=== PATIENT | female | born 1960 | race African-American/Black ===

== ENCOUNTER 2017-06-02 16:03 | Inpatient (IN) | payer MEDICAID, OTHER ==
[2017-06-02] MEDS ORDERED: ACETAMINOPHEN TAB 325 MG TAB PO STA (17:28)
[2017-06-02] MEDS ORDERED: SODIUM CHLORIDE 0.9% 1,000 ML IV ONE (17:28)
--- NOTE | 2017-06-02 17:32 | ED ---
Skin/Abscess/FB HPI <Gael King - Last Filed: 06/02/17 18:50> - General Source: patient, RN notes reviewed Mode of arrival: ambulatory Limitations: no limitations <Nicolle Gallo - Last Filed: 06/02/17 19:32> - General Chief complaint: Skin/Abscess/Foreign Body Stated complaint: Rash Time Seen by Provider: 06/02/17 16:42 - History of Present Illness Initial comments: Patient is a 57-year-old female presents to the emergency room for evaluation of abdominal wall abscess. Patient states that she noticed a small lump consistent with either spider bite or mosquito bite on her abdomen on May 25. Patient states on and Sunday she noticed that the area began to get larger and draining yellow fluid. Patient states while at work today the area was very irritating with her shirt rubbing against it and bending over. Patient states that she has not been feeling well and has been having low-grade fevers. Patient denies history of abscesses. Patient denies history of MRSA or any type of staph infections. Patient denies nausea or vomiting. Patient denies chest pain or shortness of breath. Patient does states she works in a [employer]. Patient denies history of diabetes. (Nicolle Gallo) - Related Data Home Medications Medication Instructions Recorded Confirmed Ibuprofen [Motrin] 200 mg PO Q6HR PRN 06/02/17 06/02/17 Allergies Allergy/AdvReac Type Severity Reaction Status Date / Time Penicillins Allergy Unknown Verified 06/02/17 16:34 Review of Systems ROS Other: All systems not noted in ROS Statement are negative. <Gael King - Last Filed: 06/02/17 18:50> ROS Other: All systems not noted in ROS Statement are negative. <Nicolle aGllo - Last Filed: 06/02/17 19:32> ROS Statement: Those systems with pertinent positive or pertinent negative responses have been documented in the HPI. Past Medical History Past Medical History: Asthma, Thyroid Disorder History of Any Multi-Drug Resistant Organisms: None Reported Past Surgical History: No Surgical Hx Reported Past Psychological History: No Psychological Hx Reported Smoking Status: Never smoker Past Alcohol Use History: None Reported Past Drug Use History: None Reported <Nicolle Gallo - Last Filed: 06/02/17 19:32> General Exam <Gael King - Last Filed: 06/02/17 18:50> Limitations: no limitations General appearance: alert, in no apparent distress Head exam: Present: atraumatic, normocephalic, normal inspection Eye exam: Present: normal appearance ENT exam: Present: normal exam Neck exam: Present: normal inspection Respiratory exam: Present: normal lung sounds bilaterally. Absent: respiratory distress Cardiovascular Exam: Present: regular rate, normal rhythm, normal heart sounds GI/Abdominal exam: Present: soft, normal bowel sounds, other (2 inch x 1 inch abscess/induration with surrounding erythema over the superior portion of the abdomen. No drainage noted. Warm to touch.). Absent: distended, tenderness, guarding, rebound, rigid Extremities exam: Present: normal inspection Back exam: Present: normal inspection Neurological exam: Present: alert, oriented X3, CN II-XII intact, normal gait Psychiatric exam: Present: normal affect, normal mood Skin exam: Present: warm, dry. Absent: rash <Nicolle Gallo - Last Filed: 06/02/17 19:32> - General Exam Comments Initial Comments: Laying in exam room, no acute distress. (Nicolle Gallo) Procedures - Incision & Drainage Consent Obtained: verbal consent Site: abdomen Size (cm): 4 I&D Cleaning Method: Betadine Sterile Field Used?: No Scalpel Used: #11 I&D Drainage Obtained: Pus, Blood Culture Obtained?: Yes Patient Tolerated Procedure: well <Nicolle Gallo - Last Filed: 06/02/17 19:32> Medical Decision Making - Lab Data Result diagrams: 06/02/17 17:00 06/02/17 17:00 <Gael King - Last Filed: 06/02/17 18:50> - Lab Data Result diagrams: 06/02/17 17:00 06/02/17 17:00 <Nicolle Gallo - Last Filed: 06/02/17 19:32> - Medical Decision Making Patient presents with a an abscess on the anterior abdominal wall. . Patient states she thought was a spider bite. Appears to be MRSA. She does work in a [employer]. She denies ever having had a MRSA infection the past, patient does not have diabetes. She has an ALLERGY to penicillin. The patient will have an incision and drainage done to obtain a sample and will be started on vancomycin and admitted the hospital. Dr. King (Gael King) - Lab Data Lab Results 06/02/17 06/02/17 06/02/17 Range/Units 17:00 17:00 17:00 WBC 8.8 (3.8-10.6) k/uL RBC 3.78 L (3.80-5.40) m/uL Hgb 11.7 (11.4-16.0) gm/dL Hct 35.6 (34.0-46.0) % MCV 94.2 (80.0-100.0) fL MCH 31.1 (25.0-35.0) pg MCHC 33.0 (31.0-37.0) g/dL RDW 13.1 (11.5-15.5) % Plt Count 285 (150-450) k/uL Neutrophils % 68 % Lymphocytes % 18 % Monocytes % 6 % Eosinophils % 7 % Basophils % 0 % Neutrophils # 5.9 (1.3-7.7) k/uL Lymphocytes # 1.6 (1.0-4.8) k/uL Monocytes # 0.5 (0-1.0) k/uL Eosinophils # 0.6 (0-0.7) k/uL Basophils # 0.0 (0-0.2) k/uL Sodium 141 (137-145) mmol/L Potassium 4.0 (3.5-5.1) mmol/L Chloride 105 (98-107) mmol/L Carbon Dioxide 24 (22-30) mmol/L Anion Gap 12 mmol/L BUN 13 (7-17) mg/dL Creatinine 0.76 (0.52-1.04) mg/dL Est GFR (MDRD) Af Amer >60 (>60 ml/min/1.73 sqM) Est GFR (MDRD) Non-Af >60 (>60 ml/min/1.73 sqM) Glucose 85 (74-99) mg/dL Plasma Lactic Acid Cal 1.2 (0.7-2.0) mmol/L Calcium 9.4 (8.4-10.2) mg/dL Total Bilirubin 0.7 (0.2-1.3) mg/dL AST 23 (14-36) U/L ALT 28 (9-52) U/L Alkaline Phosphatase 95 (38-126) U/L Total Protein 7.7 (6.3-8.2) g/dL Albumin 4.5 (3.5-5.0) g/dL Urine Color Urine Appearance (Clear) Urine pH (5.0-8.0) Ur Specific Corona (1.001-1.035) Urine Protein (Negative) Urine Glucose (UA) (Negative) Urine Ketones (Negative) Urine Blood (Negative) Urine Nitrite (Negative) Urine Bilirubin (Negative) Urine Urobilinogen (<2.0) mg/dL Ur Leukocyte Esterase (Negative) 06/02/17 Range/Units 17:00 WBC (3.8-10.6) k/uL RBC (3.80-5.40) m/uL Hgb (11.4-16.0) gm/dL Hct (34.0-46.0) % MCV (80.0-100.0) fL MCH (25.0-35.0) pg MCHC (31.0-37.0) g/dL RDW (11.5-15.5) % Plt Count (150-450) k/uL Neutrophils % % Lymphocytes % % Monocytes % % Eosinophils % % Basophils % % Neutrophils # (1.3-7.7) k/uL Lymphocytes # (1.0-4.8) k/uL Monocytes # (0-1.0) k/uL Eosinophils # (0-0.7) k/uL Basophils # (0-0.2) k/uL Sodium (137-145) mmol/L Potassium (3.5-5.1) mmol/L Chloride (98-107) mmol/L Carbon Dioxide (22-30) mmol/L Anion Gap mmol/L BUN (7-17) mg/dL Creatinine (0.52-1.04) mg/dL Est GFR (MDRD) Af Amer (>60 ml/min/1.73 sqM) Est GFR (MDRD) Non-Af (>60 ml/min/1.73 sqM) Glucose (74-99) mg/dL Plasma Lactic Acid Cal (0.7-2.0) mmol/L Calcium (8.4-10.2) mg/dL Total Bilirubin (0.2-1.3) mg/dL AST (14-36) U/L ALT (9-52) U/L Alkaline Phosphatase (38-126) U/L Total Protein (6.3-8.2) g/dL Albumin (3.5-5.0) g/dL Urine Color Yellow Urine Appearance Clear (Clear) Urine pH 5.5 (5.0-8.0) Ur Specific [place] 1.022 (1.001-1.035) Urine Protein Trace H (Negative) Urine Glucose (UA) Negative (Negative) Urine Ketones Negative (Negative) Urine Blood Negative (Negative) Urine Nitrite Negative (Negative) Urine Bilirubin Negative (Negative) Urine Urobilinogen <2.0 (<2.0) mg/dL Ur Leukocyte Esterase Negative (Negative) Disposition <Gael King - Last Filed: 06/02/17 18:50> Decision Date: 06/02/17 <Nicolle Gallo - Last Filed: 06/02/17 19:32> Clinical Impression: Abdominal wall abscess Disposition: ADMITTED IP TO THIS [facility] Condition: Stable Referrals: None,Stated [Primary Care Provider] - 1-2 days
[2017-06-02 17:52] LABS: Appearance,Urine Clear (Clear); Basophils % (A) 0 %; Bilirubin,Urine Negative (Negative); Eosinophils # (A) 0.6 k/uL (0-0.7); Eosinophils % (A) 7 %; Glucose,Urine (UA) Negative (Negative); HCT 35.6 % (34.0-46.0); HDW 2.26; HGB 11.7 gm/dL (11.4-16.0); Ketones,Urine Negative (Negative); Leukocyte Esterase,Urine Negative (Negative); Luc # (Auto) 0.12; Luc % (Auto) 1; Lymphocytes # (A) 1.6 k/uL (1.0-4.8); Lymphocytes % (A) 18 %; MCH 31.1 pg (25.0-35.0); MCV 94.2 fL (80.0-100.0); Mean Platelet Volume 8.6; Monocytes # (A) 0.5 k/uL (0-1.0); Monocytes % (A) 6 %; Neutrophils # (A) 5.9 k/uL (1.3-7.7); Neutrophils % (A) 68 %; Nitrite,Urine Negative (Negative); PH, Urine 5.5 (5.0-8.0); Protein,Urine Trace (Negative); RBC 3.78 m/uL (3.80-5.40); RDW 13.1 % (11.5-15.5); Specific Gravity,Urine 1.022 (1.001-1.035); UA Billing (MACRO vs. MICRO) CHEM; Urobilinogen,Urine <2.0 mg/dL (<2.0); WBC 8.8 k/uL (3.8-10.6); WBC (Perox) 9.48
[2017-06-02 18:01] LABS: ALT 28 U/L (9-52); AST 23 U/L (14-36); Alkaline Phosphatase 95 U/L (38-126); Anion Gap 12 mmol/L; Blood Urea Nitrogen 13 mg/dL (7-17); Calcium 9.4 mg/dL (8.4-10.2); Carbon Dioxide 24 mmol/L (22-30); Chloride 105 mmol/L (98-107); Glucose 85 mg/dL (74-99); Non-African American GFR(MDRD) >60 (>60 ml/min/1.73 sqM); Sodium 141 mmol/L (137-145); Total Bilirubin 0.7 mg/dL (0.2-1.3); Total Protein 7.7 g/dL (6.3-8.2)
[2017-06-02] MEDS ORDERED: IV VANCOMYCIN PER PHARMACY 1 EACH MISC MISCELLANE PRN (18:49)
[2017-06-02] MEDS ORDERED: ONDANSETRON 4 MG/2 ML VIAL IVP PRN (19:01)
[2017-06-02] MEDS ORDERED: NALOXONE 0.4 MG/ML 1 ML VIAL IV PRN (19:01)
[2017-06-02] MEDS ORDERED: ACETAMINOPHEN TAB 325 MG TAB PO PRN (19:01)
[2017-06-02] MEDS ORDERED: KETOROLAC 30 MG/ML 1 ML VIAL IVP STA (19:14)
[2017-06-02] MEDS ORDERED: VANCOMYCIN 1,750 MG in SODIUM CHLORIDE 0.9% 250 ML IVPB ONE (19:30)
[2017-06-02] MEDS: SODIUM CHLORIDE 0.9% 1,000 ML IV SCH (19:43)
[2017-06-03 06:53] LABS: Basophils % (A) 1 %; CH 30.7; CHCM 32.3; Eosinophils # (A) 0.5 k/uL (0-0.7); Eosinophils % (A) 8 %; HDW 2.27; HGB 10.6 gm/dL (11.4-16.0); Luc # (Auto) 0.15; Luc % (Auto) 2; Lymphocytes # (A) 1.4 k/uL (1.0-4.8); Lymphocytes % (A) 23 %; MCH 30.7 pg (25.0-35.0); MCHC 32.2 g/dL (31.0-37.0); MCV 95.5 fL (80.0-100.0); Mean Platelet Volume 8.3; Monocytes # (A) 0.5 k/uL (0-1.0); Monocytes % (A) 8 %; Neutrophils # (A) 3.6 k/uL (1.3-7.7); Neutrophils % (A) 59 %; RBC 3.46 m/uL (3.80-5.40); RDW 13.2 % (11.5-15.5); WBC 6.1 k/uL (3.8-10.6); WBC (Perox) 6.65
[2017-06-03] MEDS: SODIUM CHLORIDE 0.9% 1,000 ML IV SCH ×2 (06:55→14:52)
[2017-06-03] MEDS: KETOROLAC 30 MG/ML 1 ML VIAL IVP PRN ×2 (07:01→18:52)
[2017-06-03] MEDS: VANCOMYCIN 1,500 MG in SODIUM CHLORIDE 0.9% 250 ML IVPB SCH (11:29)
--- NOTE | 2017-06-03 18:07 | HP ---
HISTORY AND PHYSICAL CHIEF COMPLAINT: Pain and swelling of the abdominal wall. HISTORY OF PRESENT ILLNESS: This 57-year-old woman with a past history of asthma, hypothyroidism, history of Caesarean section, not being followed by any primary care physician in the outpatient setting, is working in the housekeeping department in [employer]. The patient noted to have pain and swelling and some swelling of the abdominal wall, which has increased in intensity. Patient also has right shoulder lesion also. Because of increasing difficulty, patient came to [facility] and admitted for evaluation and treatment. Patient also complains of mild fever, some abdominal swelling and draining of fluid as well. There is no history of fever, rigors. No history of headache, loss of consciousness or seizures at this time. There is no history of MRSA infection previously. PAST MEDICAL HISTORY: Asthma, hypothyroidism, history of Caesarean section. MEDICATIONS PRIOR TO ADMISSION: Include Motrin 200 mg q.6h p.r.n. ALLERGIES: PENICILLIN. FAMILY HISTORY: History of intestinal cancer in the family. SOCIAL HISTORY: No history of smoking. No history of alcohol intake. REVIEW OF SYSTEMS: Otherwise mentioned earlier. Review of systems: ENT: No diminished vision. No diminished hearing. Cardiovascular: No angina or palpitations. Respiratory: No cough. No hemoptysis. GI: No nausea or vomiting. : No dysuria. Nervous system: No numbness, weakness. ALLERGY/IMMUNOLOGY: No asthma or hayfever. Musculoskeletal: As mentioned earlier. Hematology/Oncology: No history of anemia. Endocrine: No history of diabetes or hypothyroidism. CONSTITUTIONAL: As mentioned earlier. Dermatology: Negative. Rheumatology: Negative. Psychiatric: As mentioned earlier. EXAMINATION: Alert and oriented times three. The pulse is 77, blood pressure 161/85, respiration 18, temperature 98.8, pulse ox 100% on 2 L. HEENT: Conjunctivae normal. Neck: No jugular venous distention. Cardiovascular: S1, S2 muffled. Respiratory: Breath sounds diminished at the bases. No rhonchi. No crackles. ABDOMEN: Soft. Abdominal wall swelling and pain and tenderness. Some erythema also present. Evidence of cellulitis and abscess needs to be ruled out. Otherwise, ABDOMEN: Soft. No guarding, no rigidity. No mass palpable. Legs no edema. No swelling. NERVOUS SYSTEM: Higher functions as mentioned earlier. Moves all four limbs. No focal deficits. Lymphatics: No lymph nodes palpable in the neck, axillae or groin. Skin: Examination of the abdominal wall skin as mentioned earlier. Otherwise minimal abscess and purulent lesion in the right shoulder area present. Joints no active deforming arthropathy. LAB STUDIES: WBC 6.1, hemoglobin 14.2. ASSESSMENT: 1. Acute abscess cellulitis of the abdominal wall rule out Methicillin-resistant Staphylococcus aureus. 2. Right shoulder cellulitis. 3. History of abscess. 4. Hypothyroidism. 5. . RECOMMENDATIONS AND DISCUSSION: This 57-year-old woman who presented with multiple complex medical issues, we will monitor the patient closely. Continue the current management and symptomatic treatment. Otherwise the patient is started on vancomycin. We will continue to monitor. Obtain cultures. DVT prophylaxis. Symptomatic treatment. Guarded prognosis. Further recommendations to follow. Also recommend the patient follow up with primary care physician closely in the outpatient setting. BETZAIDA / BANDAR: [id number] /
[2017-06-04] MEDS: KETOROLAC 30 MG/ML 1 ML VIAL IVP PRN ×3 (01:08→16:58)
[2017-06-04] MEDS: SODIUM CHLORIDE 0.9% 1,000 ML IV SCH ×3 (03:19→16:57)
[2017-06-04] MEDS: VANCOMYCIN 1,500 MG in SODIUM CHLORIDE 0.9% 250 ML IVPB SCH ×2 (03:32→19:16)
[2017-06-04 07:06] LABS: Basophils % (A) 0 %; CH 30.7; CHCM 32.6; Eosinophils # (A) 0.5 k/uL (0-0.7); Eosinophils % (A) 7 %; HCT 32.9 % (34.0-46.0); HDW 2.33; HGB 10.7 gm/dL (11.4-16.0); Luc # (Auto) 0.12; Luc % (Auto) 2; Lymphocytes # (A) 1.2 k/uL (1.0-4.8); Lymphocytes % (A) 18 %; MCH 30.7 pg (25.0-35.0); MCHC 32.4 g/dL (31.0-37.0); MCV 94.6 fL (80.0-100.0); Mean Platelet Volume 8.5; Monocytes # (A) 0.5 k/uL (0-1.0); Monocytes % (A) 8 %; Neutrophils # (A) 4.4 k/uL (1.3-7.7); Neutrophils % (A) 65 %; RBC 3.48 m/uL (3.80-5.40); RDW 13.1 % (11.5-15.5); WBC 6.7 k/uL (3.8-10.6); WBC (Perox) 6.88
[2017-06-04 07:28] LABS: Anion Gap 7 mmol/L; Blood Urea Nitrogen 10 mg/dL (7-17); Calcium 8.4 mg/dL (8.4-10.2); Carbon Dioxide 21 mmol/L (22-30); Chloride 112 mmol/L (98-107); Glucose 98 mg/dL (74-99); Non-African American GFR(MDRD) >60 (>60 ml/min/1.73 sqM); Potassium 4.5 mmol/L (3.5-5.1); Sodium 140 mmol/L (137-145)
--- NOTE | 2017-06-04 18:52 | P.PN ---
Subjective Date of service 06/04/2017. Progress note being dictated for Dr. Brown. Interval history: This is a 57-year-old female admitted with acute abscess cellulitis of the abdominal wall, right shoulder cellulitis and multiple other medical issues. Maintained on IV vancomycin. Right shoulder cellulitis significantly improved. Abdominal cellulitis with significant serosanguineous drainage. Wound culture reporting MSSA. Denies chest pain, palpitations or increasing shortness of breath. Afebrile, normal WBC. Objective - Vital Signs Vital signs: Vital Signs Temp 98.5 F 06/04/17 15:00 Pulse 85 06/04/17 15:00 Resp 18 06/04/17 15:00 BP 152/83 06/04/17 15:00 Pulse Ox 100 06/04/17 15:00 Intake & Output 06/03/17 06/04/17 06/04/17 18:59 06:59 18:59 Intake Total 240 2040 Balance 240 2040 Intake: Intake, IV Titration 1000 Amount Sodium Chloride 0.9% 1, 1000 000 ml @ 100 mls/hr IV . Q10H STEPHANIE Rx#:[id number] Oral 240 1040 Other: Voiding Method Toilet Toilet Toilet # Voids 2 2 8 # Bowel Movements 4 - Exam PHYSICAL EXAM: VITAL SIGNS: [As above] GENERAL: Sitting up in bed, in no acute distress HEENT: Conjunctivae normal. eyes normal. NECK: No JVD. No thyroid enlargement. CARDIOVASCULAR: S1, S2 muffled. No murmur RESPIRATION: Breath sounds diminished in the bases. No rhonchi or crackles. No bronchial breathing. ABDOMEN: Soft, mildly distended ,tender abdominal wall swelling with serosanguineous drainage mid abdomen- proximal to the umbilicus . No guarding. no masses palpable. Bowel sounds heard. LEGS: No edema. no swelling PSYCHIATRY: Alert and oriented -3, mood and affect normal. NERVOUS SYSTEM: Cranial N 2-12 grossly normal. Moves all 4 limbs. Diffuse weakness No focal deficits. No sensory deficit. No signs of cerebellar dysfucntion. Skin: Abdomen wall as mentioned above. Right shoulder much improved. Joints: No active swelling. No inflammation. Lymphatic system. No LN neck axilla or groin. - Labs CBC & Chem 7: 06/04/17 06:47 06/04/17 06:47 Labs: Abnormal Lab Results - Last 24 Hours (Table) 06/04/17 06/04/17 Range/Units 06:47 06:47 RBC 3.48 L (3.80-5.40) m/uL Hgb 10.7 L (11.4-16.0) gm/dL Hct 32.9 L (34.0-46.0) % Chloride 112 H (98-107) mmol/L Carbon Dioxide 21 L (22-30) mmol/L Microbiology - Last 24 Hours (Table) 06/02/17 19:20 Gram Stain - Final Abdomen Wound Culture - Final Staphylococcus aureus 06/02/17 17:00 Urine Culture - Final Urine,Clean Catch 06/02/17 17:00 Blood Culture - Preliminary Blood No Growth after 24 hours Assessment and Plan Plan: 1.Acute abscess, cellulitis of the abdominal wall with MSSA 2. Right shoulder cellulitis, much improved 3. Hypothyroidism Plan: Continue on current medication regime ,monitoring and symptomatic treatment. Infectious disease recommendations pending. Surgery consult regarding abdominal abscess, cellulitis. The impression and plan of care has been dictated as directed. : I performed a H&P examination of this patient and discussed the same with the dictator. I agree with the dictator's note. Any additional findings/opinions/ etc. will be noted.
--- NOTE | 2017-06-04 23:35 | CONS ---
CONSULTATION DATE OF SERVICE: 06/04/2017 REASON FOR CONSULTATION: Abdominal wall abscess. HISTORY OF PRESENT ILLNESS: The patient is a 57-year-old -[place] female who presented to the ER at [facility] on 06/01/2017 with the chief complaints of abdominal wall pain, swelling and redness. The patient did mention that in the middle of her abdominal area she developed a pimple that gradually increased in size and has become more painful. Pain is described to be throbbing, 4 to 5 out of 10, and no radiation. The patient did have slight purulent drainage from it. The patient denies any high-grade fever, though on arrival at the ER the patient did have a low-grade fever of 99.8. Patient's white count was normal. Normal kidney function. The patient did have local wound cultures were obtained, which are now showing a Staph aureus, with sensitivities pending. Blood culture has been negative. ID was consulted for further recommendation regarding antibiotic therapy. REVIEW OF SYSTEMS: CONSTITUTIONAL: Positive for weakness and chills. EYES: No complaint. ENT: No complaint. RESPIRATORY: No complaint. CARDIOVASCULAR: No complaint. GENITOURINARY: No complaint. GASTROINTESTINAL: No complaint. MUSCULOSKELETAL: No complaint. INTEGUMENTARY: As per HPI. PSYCHOLOGICAL: No complaint. ENDOCRINE: No complaint. NEUROLOGICAL: No complaint. PAST MEDICAL HISTORY: Significant for hypothyroidism and asthma. PAST SURGICAL HISTORY: . SOCIAL HISTORY: No history of smoking, drinking or drug use. FAMILY HISTORY: No pertinent findings were noticed. ALLERGIES: PENICILLIN with a rash. No history of anaphylaxis. CURRENT MEDICATION: 1. Tylenol. 2. Toradol. 3. Vancomycin, Pharmacy to dose. 4. Zofran. PHYSICAL EXAMINATION: Blood pressure is 152/83 with a pulse of 85, temperature 98.5. She is 100% on 2 L nasal cannula. General description is a middle-aged female lying in bed in no distress. No tachypnea or accessory muscles of respiration use. HEENT examination shows pallor. No scleral icterus. Oral mucosal membrane dry. NECK: Trachea is central. No thyromegaly. LUNGS: Unlabored breathing. Clear to auscultation anteriorly. No wheeze or crackle. HEART: S1, S2. Regular rate and rhythm. No added sound. ABDOMEN: Soft. In the mid abdominal area the patient had an area of induration. On pressure, a significant amount of purulent material came out. Neurologically the patient is awake, alert, oriented x3. Mood and affect normal. LABS: Hemoglobin is 10.7, white count 6.7 with a BUN of 10, creatinine 0.70. Blood culture negative. Wound culture with Staph aureus. DIAGNOSTIC IMPRESSION AND PLAN: 1. Patient with abdominal wall abscess that started as a pimple, likely for MRSA, community-associated; underlying MSSA could not be entirely excluded. 2. Patient has a PENICILLIN ALLERGY. This does limit the number of antibiotics that can be safely used. PLAN: 1. The patient needs a general surgery evaluation for drainage of this abscess. 2. The patient will continue with vancomycin, Pharmacy to dose ( ) while waiting for the culture to finalize. 3. We will follow up on the clinical condition and culture to further adjust medication if needed. Thank you for this consultation. Will follow this patient along with you. MMODL / IJN: [id number] /
[2017-06-05] MEDS: KETOROLAC 30 MG/ML 1 ML VIAL IVP PRN ×2 (01:18→20:36)
[2017-06-05] MEDS: SODIUM CHLORIDE 0.9% 1,000 ML IV SCH ×2 (07:48→17:16)
[2017-06-05] MEDS ORDERED: VANCOMYCIN TROUGH DUE 1 EACH MISC MISCELLANE ONE (10:00)
[2017-06-05 10:44] LABS: Basophils % (A) 0 %; CH 30.8; CHCM 32.6; Eosinophils # (A) 0.5 k/uL (0-0.7); Eosinophils % (A) 8 %; HCT 33.8 % (34.0-46.0); HDW 2.39; HGB 11.2 gm/dL (11.4-16.0); Luc # (Auto) 0.12; Luc % (Auto) 2; Lymphocytes # (A) 1.1 k/uL (1.0-4.8); Lymphocytes % (A) 19 %; MCH 31.3 pg (25.0-35.0); MCV 94.9 fL (80.0-100.0); Mean Platelet Volume 8.5; Monocytes # (A) 0.4 k/uL (0-1.0); Monocytes % (A) 7 %; Neutrophils # (A) 3.9 k/uL (1.3-7.7); Neutrophils % (A) 64 %; RBC 3.57 m/uL (3.80-5.40); RDW 12.9 % (11.5-15.5); WBC 6.1 k/uL (3.8-10.6); WBC (Perox) 6.66
[2017-06-05 11:25] LABS: Anion Gap 6 mmol/L; Blood Urea Nitrogen 10 mg/dL (7-17); Calcium 8.7 mg/dL (8.4-10.2); Carbon Dioxide 26 mmol/L (22-30); Chloride 109 mmol/L (98-107); Glucose 109 mg/dL (74-99); Non-African American GFR(MDRD) >60 (>60 ml/min/1.73 sqM); Potassium 4.6 mmol/L (3.5-5.1); Sodium 141 mmol/L (137-145)
[2017-06-05] MEDS: VANCOMYCIN 1,500 MG in SODIUM CHLORIDE 0.9% 250 ML IVPB SCH (11:51)
--- NOTE | 2017-06-05 13:19 | P.GSCN ---
History of Present Illness Consult date: 06/05/17 Reason for Consult: Abdominal wall abscess History of present illness: 57-year-old female being seen at the request of the attending for surgical eval with a chief complaint of abdominal wall pain with an abdominal wall abscess patient stated that she noted that she developed an area in the middle of the abdomen started out as a pimple gradually increased in size and became more painful. Patient stated that she did not have a high-grade temp low-grade temp of 99.1 the white count was normal. Patient presented with the above symptoms. Was admitted to the services of the attending with an infectious disease consultation pending. Patient states she's had no prior incident. Wound cultures obtained currently are showing staph aureus sensitivities are pending and blood cultures are pending it does show in the mid abdominal area an area of induration. In the emergency room there was a moderate amount of purulent material able to be expressed. Review of Systems Essentially unremarkable except as mentioned in the present illness Past Medical History Past Medical History: Asthma, Thyroid Disorder History of Any Multi-Drug Resistant Organisms: None Reported Past Surgical History: Section Additional Past Surgical History / Comment(s): csection x3 Past Anesthesia/Blood Transfusion Reactions: No Reported Reaction Past Psychological History: No Psychological Hx Reported Smoking Status: Never smoker Past Alcohol Use History: None Reported Past Drug Use History: None Reported - Past Family History Mother Family Medical History: Cancer Additional Family Medical History / Comment(s): intestinal cancer Father Family Medical History: No Reported History Medications and Allergies Home Medications Medication Instructions Recorded Confirmed Type Ibuprofen [Motrin] 200 mg PO Q6HR PRN 06/02/17 06/02/17 History Allergies Allergy/AdvReac Type Severity Reaction Status Date / Time Penicillins Allergy Unknown Verified 06/02/17 16:34 Surgical - Exam Vital Signs Temp Pulse Resp BP Pulse Ox 99.8 F H 90 20 162/78 100 06/02/17 16:22 06/02/17 16:22 06/02/17 16:22 06/02/17 16:22 06/02/17 16:22 GENERAL APPEARANCE: 57-year-old female patient is alert, oriented, in no acute distress. VITAL SIGNS: Reviewed HEENT: Head is normocephalic and atraumatic. Pupils are equal and reactive. The nares are patent. Oropharynx is clear without lesions. NECK: Supple without lymphadenopathy. Traches midline. HEART: S1, S2. Regular rate and rhythm. No murmur noted denying chest pain LUNGS: No crackles or wheezes are heard. Adequate air movement on room air ABDOMEN: Soft, an area of induration noted mid abdominal wall, slight tenderness noted not able to express any.Drainage nondistended with good bowel sounds. No peritoneal signs. No palpable organomegaly or masses. EXTREMITIES: Normal skin color and turgor. No cyanosis, rash, ulceration, clubbing or edema. Radial pedal pulses are 2/4 bilaterally. NEUROLOGICAL: No focal deficits. Strength and sensation are grossly intact. Results - Labs 06/05/17 10:24 06/05/17 10:24 Abnormal Lab Results - Last 24 Hours (Table) 06/05/17 06/05/17 Range/Units 10:24 10:24 RBC 3.57 L (3.80-5.40) m/uL Hgb 11.2 L (11.4-16.0) gm/dL Hct 33.8 L (34.0-46.0) % Chloride 109 H (98-107) mmol/L Glucose 109 H (74-99) mg/dL Microbiology - Last 24 Hours (Table) 06/02/17 17:00 Blood Culture - Preliminary Blood No Growth after 48 hours 06/02/17 19:20 Gram Stain - Final Abdomen Wound Culture - Final Staphylococcus aureus Diabetes panel 06/05/17 Range/Units 10:24 Sodium 141 (137-145) mmol/L Potassium 4.6 (3.5-5.1) mmol/L Chloride 109 H (98-107) mmol/L Carbon Dioxide 26 (22-30) mmol/L BUN 10 (7-17) mg/dL Creatinine 0.70 (0.52-1.04) mg/dL Glucose 109 H (74-99) mg/dL Calcium 8.7 (8.4-10.2) mg/dL Calcium panel 06/05/17 Range/Units 10:24 Calcium 8.7 (8.4-10.2) mg/dL Pituitary panel 06/05/17 Range/Units 10:24 Sodium 141 (137-145) mmol/L Potassium 4.6 (3.5-5.1) mmol/L Chloride 109 H (98-107) mmol/L Carbon Dioxide 26 (22-30) mmol/L BUN 10 (7-17) mg/dL Creatinine 0.70 (0.52-1.04) mg/dL Glucose 109 H (74-99) mg/dL Calcium 8.7 (8.4-10.2) mg/dL Adrenal panel 06/05/17 Range/Units 10:24 Sodium 141 (137-145) mmol/L Potassium 4.6 (3.5-5.1) mmol/L Chloride 109 H (98-107) mmol/L Carbon Dioxide 26 (22-30) mmol/L BUN 10 (7-17) mg/dL Creatinine 0.70 (0.52-1.04) mg/dL Glucose 109 H (74-99) mg/dL Calcium 8.7 (8.4-10.2) mg/dL Assessment and Plan Plan: Impression Present on admission acute mid abdominal abscess suspect MRSA, community associated Hypothyroid Right shoulder cellulitis improved present on admission Plan Antibiotics per recommendations of infectious disease incision and drainage of the abscess of the abdominal wall timing defer to attending surgeon Wound care as ordered Follow-up on wound, urine, blood cultures DVT and GI prophylaxis Will follow the surgical course addressing surgical issues as they arise The above impression and plan of care have been discussed and directed by signing physician. Sakina Ly nurse practitioner acting as scribe for signing physician.
[2017-06-05] MEDS: ceFAZolin 2 GM in SODIUM CHLORIDE 0.9% 100 ML IVPB SCH ×2 (18:13→23:27)
[2017-06-05] MEDS ORDERED: VANCOMYCIN 1,500 MG in SODIUM CHLORIDE 0.9% 250 ML IVPB SCH (21:00)
[2017-06-06] MEDS: SODIUM CHLORIDE 0.9% 1,000 ML IV SCH ×3 (05:39→17:14)
[2017-06-06 08:11] LABS: Basophils % (A) 1 %; CH 30.9; CHCM 33.1; Eosinophils # (A) 0.6 k/uL (0-0.7); Eosinophils % (A) 9 %; HCT 32.7 % (34.0-46.0); HDW 2.44; HGB 10.8 gm/dL (11.4-16.0); Luc # (Auto) 0.13; Luc % (Auto) 2; Lymphocytes # (A) 1.4 k/uL (1.0-4.8); Lymphocytes % (A) 22 %; MCH 31.1 pg (25.0-35.0); MCHC 33.2 g/dL (31.0-37.0); MCV 93.7 fL (80.0-100.0); Mean Platelet Volume 8.1; Monocytes # (A) 0.4 k/uL (0-1.0); Monocytes % (A) 6 %; Neutrophils # (A) 3.9 k/uL (1.3-7.7); Neutrophils % (A) 61 %; RBC 3.48 m/uL (3.80-5.40); RDW 13.5 % (11.5-15.5); WBC 6.4 k/uL (3.8-10.6)
[2017-06-06 08:27] LABS: Anion Gap 10 mmol/L; Blood Urea Nitrogen 10 mg/dL (7-17); Carbon Dioxide 24 mmol/L (22-30); Chloride 108 mmol/L (98-107); Glucose 84 mg/dL (74-99); Non-African American GFR(MDRD) >60 (>60 ml/min/1.73 sqM); Potassium 4.1 mmol/L (3.5-5.1); Sodium 142 mmol/L (137-145)
[2017-06-06] MEDS: ceFAZolin 2 GM in SODIUM CHLORIDE 0.9% 100 ML IVPB SCH ×2 (08:36→17:11)
--- NOTE | 2017-06-06 10:30 | P.PN ---
Subjective 57-year-old female being seen on rounds. Currently is stating that there is less abdominal discomfort this morning. There is less induration of the abdominal wound this morning Patients being followed by surgical service for abdominal wall abscess mid abdomen. Currently has a dressing over the site dressing is dry. Patient denies any nausea vomiting or frequent stooling or shortness of breath the white counts morning 6.4 electrolytes within normal afebrile Objective - Vital Signs Vital signs: Vital Signs Temp 97.9 F 06/06/17 07:25 Pulse 75 06/06/17 07:45 Resp 16 06/06/17 07:45 BP 157/86 06/06/17 07:25 Pulse Ox 96 06/06/17 07:25 Intake & Output 06/05/17 06/06/17 06/06/17 18:59 06:59 18:59 Intake Total 240 1300 Balance 240 1300 Intake: IV 1000 Sodium Chloride 0.9% 1, 900 000 ml @ 100 mls/hr IV . Q10H STEPHANIE Rx#:[id number] ceFAZolin 2 gm In Sodium 100 Chloride 0.9% 100 ml @ 100 mls/hr IVPB Q8HR STEHPANIE Rx#:[id number] Oral 240 300 Other: Voiding Method Toilet Toilet Toilet # Voids 4 1 1 # Bowel Movements 1 - Exam Physical exam Pleasant 57-year-old female resting in bed states is less abdominal discomfort this morning Lungs essentially clear adequate air movement on room air Heart S1-S2 audible and regular Abdomen dressing mid abdominal wall dry less tenderness no drainage noted on the dressing less induration around the area soft nontender not distended bowel tones present no frequent stooling no reports of nausea vomiting Extremities no edema noted - Labs CBC & Chem 7: 06/06/17 07:45 06/06/17 07:45 Labs: Abnormal Lab Results - Last 24 Hours (Table) 06/05/17 06/05/17 06/06/17 Range/Units 10:24 10:24 07:45 RBC 3.57 L 3.48 L (3.80-5.40) m/uL Hgb 11.2 L 10.8 L (11.4-16.0) gm/dL Hct 33.8 L 32.7 L (34.0-46.0) % Chloride 109 H (98-107) mmol/L Glucose 109 H (74-99) mg/dL 06/06/17 Range/Units 07:45 RBC (3.80-5.40) m/uL Hgb (11.4-16.0) gm/dL Hct (34.0-46.0) % Chloride 108 H (98-107) mmol/L Glucose (74-99) mg/dL Microbiology - Last 24 Hours (Table) 06/02/17 17:00 Blood Culture - Preliminary Blood No Growth after 72 hours Assessment and Plan Plan: Impression Present on admission acute mid abdominal abscess suspect MRSA, community associated Hypothyroid Right shoulder cellulitis improved present on admission Plan Antibiotics per recommendations of infectious disease We'll hold on proceeding with an incision and drainage of the wound abscess for now will monitor Wound care as ordered Follow-up on wound, urine, blood cultures DVT and GI prophylaxis Will follow the surgical course addressing surgical issues as they arise The above impression and plan of care have been discussed and directed by signing physician. Sakina Ly nurse practitioner acting as scribe for signing physician.
--- NOTE | 2017-06-06 10:48 | PN ---
PROGRESS NOTE DATE OF SERVICE: 06/05/2017. REASON FOR FOLLOW UP: Abdominal wall abscess. INTERVAL HISTORY: The patient is afebrile. She is breathing comfortably. Complaining of pain in abdominal area though the drainage has decreased. Denies any chest pain, shortness of breath. No cough. No abdominal pain or diarrhea. PHYSICAL EXAMINATION: Blood pressure is 176/81 with a pulse of 70, temperature 97.5, she is 100% on room air. General description is a middle-aged female, lying in bed, in no distress. RESPIRATORY SYSTEM: Unlabored breathing. Clear to auscultation anteriorly. HEART: S1, S2. Regular rate and rhythm. ABDOMEN: Soft. Abdominal wall with an area of induration about 3 x 4 cm. Drainage decreased. LABS: Hemoglobin 11.3 with white count 6.1, BUN of 10, creatinine 0.70. Wound culture with MSSA. Blood culture has been negative. DIAGNOSTIC IMPRESSION/PLAN: Patient with abdominal wall abscess with Methicillin-sensitive Staphylococcus aureus. Still has significant amount of induration. Patient at this time will continue with the antibiotic that will be adjusted to cefazolin 2 g q.8 hours. The patient did have a history of PENICILLIN ALLERGY. No history of anaphylaxis will be safe. Continue with supportive care. MMODL / IJN: [id number] /
--- NOTE | 2017-06-06 16:49 | PN ---
PROGRESS NOTE DATE OF SERVICE: 06/06/2017. REASON FOR FOLLOWUP VISIT: MSSA abdominal wall abscess. INTERVAL HISTORY: The patient is afebrile. She is breathing comfortably. Abdominal pain currently controlled with pain medication. No further drainage has been noted. The patient denies any chest pain, shortness of breath. No cough. No abdominal pain or diarrhea. EXAMINATION: Blood pressure is 157/86 with a pulse of 75, temperature 97.9, she is 96% on 2 L nasal cannula. General description is a middle aged female, lying in bed, in no distress. RESPIRATORY SYSTEM: Unlabored breathing. Clear to auscultation anteriorly. HEART: S1, S2. Regular rate and rhythm. ABDOMEN: Soft. There is tenderness to be indurated, minimal drainage. LAB: Hemoglobin 10.8, white count 6.4, BUN of 10, creatinine 0.70. DIAGNOSTIC IMPRESSION/PLAN: Patient with Methicillin-sensitive Staphylococcus aureus abdominal wall abscess with spontaneous drainage. Still there is still significant induration. Surgery was consulted. However, they are recommending against any drainage. Keep the patient on IV cefazolin for another 24 hours. The patient did have improvement. May be able to send home with oral Keflex for 2 weeks with close outpatient followup. MMODL / IJN: [id number] /
[2017-06-06] MEDS ORDERED: ALBUTEROL NEBULIZED 2.5 MG/3 ML INHALATION STA (23:50)
[2017-06-07] MEDS: SODIUM CHLORIDE 0.9% 1,000 ML IV SCH (00:03)
[2017-06-07] MEDS: ceFAZolin 2 GM in SODIUM CHLORIDE 0.9% 100 ML IVPB SCH ×2 (01:37→09:17)
[2017-06-07] MEDS: ALBUTEROL NEBULIZED 2.5 MG/3 ML INHALATION PRN ×2 (07:19→15:26)
[2017-06-07 07:52] LABS: Basophils % (A) 1 %; CH 30.8; CHCM 32.8; Eosinophils # (A) 0.4 k/uL (0-0.7); Eosinophils % (A) 7 %; HCT 35.5 % (34.0-46.0); HGB 11.6 gm/dL (11.4-16.0); Luc # (Auto) 0.17; Luc % (Auto) 3; Lymphocytes # (A) 1.5 k/uL (1.0-4.8); Lymphocytes % (A) 27 %; MCH 30.7 pg (25.0-35.0); MCHC 32.7 g/dL (31.0-37.0); MCV 94.1 fL (80.0-100.0); Mean Platelet Volume 7.8; Monocytes # (A) 0.3 k/uL (0-1.0); Monocytes % (A) 6 %; Neutrophils # (A) 3.1 k/uL (1.3-7.7); Neutrophils % (A) 57 %; RBC 3.77 m/uL (3.80-5.40); RDW 13.2 % (11.5-15.5); WBC 5.5 k/uL (3.8-10.6); WBC (Perox) 5.81
[2017-06-07 08:10] VITALS: TEMP 98.5
[2017-06-07 08:14] LABS: Anion Gap 11 mmol/L; Blood Urea Nitrogen 9 mg/dL (7-17); Calcium 9.3 mg/dL (8.4-10.2); Carbon Dioxide 25 mmol/L (22-30); Chloride 106 mmol/L (98-107); Glucose 98 mg/dL (74-99); Non-African American GFR(MDRD) >60 (>60 ml/min/1.73 sqM); Potassium 4.2 mmol/L (3.5-5.1); Sodium 142 mmol/L (137-145)
[2017-06-07 10:32] VITALS: RESP 18
[2017-06-07 11:12] VITALS: BP 152/72
[2017-06-07 15:40] VITALS: PULSE 80
--- NOTE | 2017-06-07 16:41 | P.PN ---
Subjective Progress note being dictated for Dr. Faulkner. 06/04/2017 :Interval history: This is a 57-year-old female admitted with acute abscess cellulitis of the abdominal wall, right shoulder cellulitis and multiple other medical issues. Maintained on IV vancomycin. Right shoulder cellulitis significantly improved. Abdominal cellulitis with significant serosanguineous drainage. Wound culture reporting MSSA. Denies chest pain, palpitations or increasing shortness of breath. Afebrile, normal WBC. 06/05 Maintained on Cefazolin as per infectious disease. abdominal abscess site drainage decreasing. Afebrile. Complains of abdominal pain. Denies chest pain, palpitations or increased shortness of breath. Wound culture reporting MSSA. Objective - Vital Signs Vital signs: Vital Signs Temp 97.5 F L 06/05/17 16:02 Pulse 70 06/05/17 16:02 Resp 16 06/05/17 16:02 BP 176/81 06/05/17 16:02 Pulse Ox 100 06/05/17 16:02 Intake & Output 06/04/17 06/05/17 06/05/17 18:59 06:59 18:59 Intake Total 800 240 Balance 800 240 Intake: Intake, IV Titration 800 Amount Sodium Chloride 0.9% 1, 800 000 ml @ 100 mls/hr IV . Q10H STEPHANIE Rx#:[id number] Oral 240 Other: Voiding Method Toilet Toilet Toilet # Voids 8 2 # Bowel Movements 4 - Exam PHYSICAL EXAM: VITAL SIGNS: [As above] GENERAL: Sitting up in bed, in no acute distress HEENT: Conjunctivae normal. eyes normal. NECK: No JVD. No thyroid enlargement. CARDIOVASCULAR: S1, S2 muffled. No murmur RESPIRATION: Breath sounds diminished in the bases. No rhonchi or crackles. No bronchial breathing. ABDOMEN: Soft, mildly distended ,tender abdominal wall swelling with decreased serosanguineous drainage mid abdomen- proximal to the umbilicus with induration. No guarding. no masses palpable. Bowel sounds heard. LEGS: No edema. no swelling PSYCHIATRY: Alert and oriented -3, mood and affect normal. NERVOUS SYSTEM: Cranial N 2-12 grossly normal. Moves all 4 limbs. No focal deficits. No sensory deficit. Skin: Abdomen wall as mentioned above. Right shoulder much improved. - Labs CBC & Chem 7: 06/07/17 07:32 06/07/17 07:32 Labs: Abnormal Lab Results - Last 24 Hours (Table) 06/05/17 06/05/17 Range/Units 10:24 10:24 RBC 3.57 L (3.80-5.40) m/uL Hgb 11.2 L (11.4-16.0) gm/dL Hct 33.8 L (34.0-46.0) % Chloride 109 H (98-107) mmol/L Glucose 109 H (74-99) mg/dL Microbiology - Last 24 Hours (Table) 06/02/17 17:00 Blood Culture - Preliminary Blood No Growth after 48 hours 06/02/17 19:20 Gram Stain - Final Abdomen Wound Culture - Final Staphylococcus aureus Assessment and Plan Plan: 1.Acute abscess, cellulitis of the abdominal wall with MSSA 2. Right shoulder cellulitis, much improved 3. Hypothyroidism Plan: Continue on current medication regime ,monitoring and symptomatic treatment. Infectious disease recommendations pending. Potential I&D per surgery. Further recommendations to follow. The impression and plan of care has been dictated as directed. : I performed a H&P examination of this patient and discussed the same with the dictator. I agree with the dictator's note. Any additional findings/opinions/ etc. will be noted.
--- NOTE | 2017-06-07 16:47 | P.PN ---
Subjective Progress note being dictated for Dr. Faulkner. 06/04/2017 :Interval history: This is a 57-year-old female admitted with acute abscess cellulitis of the abdominal wall, right shoulder cellulitis and multiple other medical issues. Maintained on IV vancomycin. Right shoulder cellulitis significantly improved. Abdominal cellulitis with significant serosanguineous drainage. Wound culture reporting MSSA. Denies chest pain, palpitations or increasing shortness of breath. Afebrile, normal WBC. 06/05 Maintained on Cefazolin as per infectious disease. abdominal abscess site drainage decreasing. Afebrile. Complains of abdominal pain. Denies chest pain, palpitations or increased shortness of breath. Wound culture reporting MSSA. 06/06/2017 continues on ceftazolin. Abdominal drainage has subsided. Denies abdominal pain. Denies chest pain, palpitations or increasing shortness of breath. Denies nausea or vomiting. Afebrile. Objective - Vital Signs Vital signs: Vital Signs Temp 97.8 F 06/06/17 15:00 Pulse 75 06/06/17 07:45 Resp 16 06/06/17 07:45 BP 157/86 06/06/17 07:25 Pulse Ox 96 06/06/17 07:25 Intake & Output 06/05/17 06/06/17 06/06/17 18:59 06:59 18:59 Intake Total 240 1300 1160 Balance 240 1300 1160 Intake: IV 1000 800 Sodium Chloride 0.9% 1, 900 800 000 ml @ 100 mls/hr IV . Q10H STEPHANIE Rx#:[id number] ceFAZolin 2 gm In Sodium 100 Chloride 0.9% 100 ml @ 100 mls/hr IVPB Q8HR STEPHANIE Rx#:[id number] Oral 240 300 360 Other: Voiding Method Toilet Toilet Toilet # Voids 4 1 3 # Bowel Movements 1 - Exam PHYSICAL EXAM: VITAL SIGNS: [As above] GENERAL: Sitting up in bed, in no acute distress HEENT: Conjunctivae normal. eyes normal. NECK: No JVD. No thyroid enlargement. CARDIOVASCULAR: S1, S2 muffled. No murmur RESPIRATION: Breath sounds diminished in the bases. No rhonchi or crackles. No bronchial breathing. ABDOMEN: Soft, mildly distended, minimal tenderness,no drainage, improving induration. No guarding. no masses palpable. Bowel sounds heard. LEGS: No edema. no swelling PSYCHIATRY: Alert and oriented -3, mood and affect normal. NERVOUS SYSTEM: Cranial N 2-12 grossly normal. Moves all 4 limbs. No focal deficits. No sensory deficit. - Labs CBC & Chem 7: 06/07/17 07:32 06/07/17 07:32 Labs: Abnormal Lab Results - Last 24 Hours (Table) 06/06/17 06/06/17 Range/Units 07:45 07:45 RBC 3.48 L (3.80-5.40) m/uL Hgb 10.8 L (11.4-16.0) gm/dL Hct 32.7 L (34.0-46.0) % Chloride 108 H (98-107) mmol/L Microbiology - Last 24 Hours (Table) 06/02/17 17:00 Blood Culture - Preliminary Blood No Growth after 72 hours Assessment and Plan Plan: 1.Acute abscess, cellulitis of the abdominal wall with MSSA 2. Right shoulder cellulitis, much improved 3. Hypothyroidism Plan: Continue on current medication regime ,monitoring and symptomatic treatment. Antibiotics as per ID. No I&D recommended at this time as per surgery. Continue to monitor overnight with discharge planning for a.m. Further recommendations to follow. The impression and plan of care has been dictated as directed. : I performed a H&P examination of this patient and discussed the same with the dictator. I agree with the dictator's note. Any additional findings/opinions/ etc. will be noted.
--- NOTE | 2017-06-07 17:19 | PN ---
PROGRESS NOTE DATE OF SERVICE: 06/07/2017 REASON FOR FOLLOWUP VISIT: MSSA abdominal wall abscess. INTERVAL HISTORY: The patient is afebrile. She is breathing comfortably. The patient denies any chest pain, shortness of breath or cough or any abdominal pain. Overall her drainage has decreased. No nausea, vomiting or any diarrhea. PHYSICAL EXAMINATION: Blood pressure is 152/72 with a pulse of 85, temperature of 98. She is 98% on room air. General description is a middle aged female lying in bed in no distress. RESPIRATORY SYSTEM: Unlabored breathing. Clear to auscultation anteriorly. HEART: S1, S2. Regular rate and rhythm. ABDOMEN: Soft. Overall area of induration is slightly decreased. No drainage was noticed. DIAGNOSTIC IMPRESSION AND PLAN: Patient with MSSA abdominal wall abscess, some spontaneous drainage. Surgery recommended against any further drainage. Antibiotic will be switched to Keflex 500 mg q.6 hours for 2 weeks with close outpatient followup. MMODL / IJN: [id number] /
--- NOTE | 2017-06-07 17:53 | P.DS ---
Providers Date of admission: 06/04/17 14:33 Expected date of discharge: 06/07/17 Attending physician: MD Dr. Kaushik Cabello Consults: 06/04/17 12:23 Consult Physician Routine Consulting Provider: Gama Charlton Consult Reason/Comments: abd wall infection Do you want consulting provider notified?: Yes 06/04/17 13:12 Consult Physician Routine Consulting Provider: Franki Chau Consult Reason/Comments: MRSA wound abdomen Do you want consulting provider notified?: Already Contacted Primary care physician: Stated None Dr. Yang Hospital Course: Final Diagnoses: 1.Acute abscess, cellulitis of the abdominal wall with MSSA 2. Right shoulder cellulitis, much improved 3. Hypothyroidism Hospital course:This is a 57-year-old female admitted with acute abscess cellulitis of the abdominal wall, right shoulder cellulitis and multiple other medical issues. Maintained on IV vancomycin. Right shoulder cellulitis significantly improved. Abdominal cellulitis/abscess presented with significant serosanguineous drainage and induration. Wound culture reporting MSSA. Evaluated by both surgery and infectious disease. Wound culture reporting MSSA. Antibiotics changed to cefazolin. No I&D recommended .significant clinical improvement. Cleared by all consults for discharge. Patient is being discharged home in a stable condition with guarded prognosis. The impression and plan of care has been dictated as directed as a scribe. : I performed a H&P examination of this patient and discussed the same with the dictator. I agree with the dictator's note. Any additional findings/opinions/ etc. will be noted. Patient Condition at Discharge: Stable Plan - Discharge Summary New Discharge Prescriptions: New Omeprazole [PriLOSEC] 20 mg PO AC-BID #28 cap Cephalexin [Keflex] 500 mg PO Q6HR #56 cap Continue Albuterol Inhaler [Ventolin Hfa Inhaler] 1 - 2 puff INHALATION Q6HR PRN PRN Reason: Wheezing Discontinued Ibuprofen [Motrin] 200 mg PO Q6HR PRN PRN Reason: Pain Discharge Medication List Albuterol Inhaler [Ventolin Hfa Inhaler] 1 - 2 puff INHALATION Q6HR PRN [History] Cephalexin [Keflex] 500 mg PO Q6HR #56 cap 06/07/17 [Rx] Omeprazole [PriLOSEC] 20 mg PO AC-BID #28 cap 06/07/17 [Rx] Follow up Appointment(s)/Referral(s): Sheree Yang MD [REFERRING] - 06/14/17 10:30 am () Gama Charlton MD [STAFF PHYSICIAN] - 06/14/17 11:15 am Ambulatory/Diagnostic Orders: Complete Blood Count w/diff [LAB.AMB] Time Frame: 3 Days, Location: Determined By Patient Patient Instructions/Handouts: Cephalexin (By mouth), Omeprazole (By mouth), Abscess (GEN) Activity/Diet/Wound Care/Special Instructions: Pending clearance from ID DIet: Cardiac Activity: limited Till F/u SEE DR. CHAU IN ONE WEEK Discharge Disposition: HOME SELF-CARE
== END 2017-06-07 16:00 | disposition home or self-care (01) | DRG 603 ==
LOC: EC 16:03 → 5MS5E 19:04 → OBSVTOIN 06-04 14:33 → 5MS5E 06-05 13:30
PROVIDERS: ADMIT Internal Medicine; ATTEND Internal Medicine
DX: L02.211 Cutaneous abscess of abdominal wall (principal); L03.113 Cellulitis of right upper limb; L03.311 Cellulitis of abdominal wall; B95.61 Methicillin susceptible Staphylococcus aureus infection as the cause of diseases classified elsewhere; E03.9 Hypothyroidism, unspecified; J45.909 Unspecified asthma, uncomplicated; Z88.0 Allergy status to penicillin; Z80.0 Family history of malignant neoplasm of digestive organs; Z79.899 Other long term (current) drug therapy; Z79.1 Long term (current) use of non-steroidal anti-inflammatories (NSAID)
CPT/HCPCS: 10060; 36415; 80048; 80053; 80202; 81003; 83605; 84443; 85025; 87040; 87070; 87077; 87086; 87186; 87205; 94640; 94760; 96360; 96361; 96365; 96375; 96376; 99284

== ENCOUNTER → 2021-07-27 | Outpatient (CLI) | payer MEDICAID ==
--- NOTE | 2021-07-28 08:57 | XR ---
EXAMINATION TYPE: XR knee limited LT DATE OF EXAM: 07/27/2021 COMPARISON: NONE HISTORY: 61-year-old female anterior lateral left knee pain TECHNIQUE: 2 views FINDINGS: Mild degenerative spurring medial compartment. Mild anterior soft tissue swelling. Trace knee joint e ffusion. No acute fracture, subluxation, or dislocation seen. IMPRESSION: Mild medial compartmental osteoarthrosis. Trace knee joint effusion. Mild anterior soft tissue swelli ng. No acute osseous abnormality seen. If symptoms persist, consider MRI.
== END | disposition home or self-care (01) ==
LOC: RADXRMAIN 16:10
PROVIDERS: ATTEND Internal Medicine
DX: M17.12 Unilateral primary osteoarthritis, left knee (principal)

== ENCOUNTER → 2022-01-31 | Outpatient (CLI) | payer MEDICAID ==
--- NOTE | 2022-01-31 21:22 | XR ---
EXAMINATION TYPE: XR ribs LT DATE OF EXAM: 01/31/2022 COMPARISON: NONE HISTORY: 61 year-old female lower left rib pain after fall TECHNIQUE: 4 views FINDINGS: There is minimal degenerative spurring of the left shoulder. No displaced left rib fracture is seen. Left hemithorax shows no pleural effusion or pneumothorax. IMPRESSION: No displaced left rib fracture seen.
== END | disposition home or self-care (01) ==
LOC: RADXRMAIN 13:04
PROVIDERS: ATTEND Internal Medicine
DX: R07.81 Pleurodynia (principal); W19.XXXA Unspecified fall, initial encounter

== ENCOUNTER → 2022-08-26 | Outpatient (CLI) | payer MEDICAID ==
[2022-08-26 18:11] LABS: HCT 35.3 % (37.2-46.3); HGB 11.2 g/dL (12.0-15.0); MCHC 31.7 g/dL (32.0-37.0); MCV 94.6 fL (80.0-97.0); Mean Platelet Volume 11.1 fL (9.5-12.2); NRBC Per 100 WBC 0 /100 WBCS (0.0-0.0); Platelet Count 283 X 10*3/uL (140-440); RBC 3.73 X 10*6/uL (4.10-5.20); RDW 13.1 % (11.5-14.5); WBC 4.46 X 10*3/uL (4.50-10.00)
[2022-08-26 18:34] LABS: ALT 15 U/L (8-44); AST 16 U/L (13-35); African American GFR (CKD) 70.4 (60.0-200.0); Albumin 4.2 g/dL (3.8-4.9); Albumin/Globulin Ratio 1.61 (1.60-3.17); Alkaline Phosphatase 94 U/L (41-126); BUN/Creat Ratio 20.73 Ratio (12.00-20.00); Blood Urea Nitrogen 20.5 mg/dL (9.0-27.0); Calcium 9.2 mg/dL (8.7-10.3); Carbon Dioxide 22.5 mmol/L (20.0-27.5); Chloride 108 mmol/L (96-109); Chol/HDL Ratio 2.82 Ratio; Globulin 2.6 g/dL (1.6-3.3); Glucose 102 mg/dL (70-110); LDL Cholesterol,Calculated 128.2 mg/dL (0.0-131.0); Non-African American GFR(CKD) 60.7 (60.0-200.0); Potassium 4.2 mmol/L (3.5-5.5); Sodium 141 mmol/L (135-145); Total Protein 6.9 g/dL (6.2-8.2); VLDL Calculation 14.96 mg/dL (5.00-40.00)
== END | disposition home or self-care (01) ==
LOC: LABWHC1 08:46
PROVIDERS: ATTEND Family Medicine
DX: Z00.00 Encounter for general adult medical examination without abnormal findings (principal)
CPT/HCPCS: 36415; 80053; 80061; 83036; 84439; 84443; 85027

== ENCOUNTER → 2023-02-24 | Outpatient (CLI) | payer MEDICAID ==
[2023-02-24 10:30] LABS: HCT 38.2 % (34.0-46.0); HGB 11.8 gm/dL (11.4-16.0); MCV 96.7 fL (80.0-100.0); Mean Platelet Volume 8.1; Platelet Count 249 k/uL (150-450); RBC 3.95 m/uL (3.80-5.40); RDW 13.4 % (11.5-15.5); WBC 4.3 k/uL (3.8-10.6)
[2023-02-25 09:26] LABS: Estimated Average Glucose 120 mg/dL
[2023-02-25 10:08] LABS: ALT 18 U/L; AST 20 U/L; Albumin 4.4 d/dL; Albumin/Globulin Ratio 1.76 Ratio; Alkaline Phosphatase 95 U/L; BUN/Creat Ratio 18.11 Ratio; Blood Urea Nitrogen 16.3 mg/dL; Calcium 9.6 mg/dL; Carbon Dioxide 23.2 mmol/L; Chloride 108 mmol/L; Chol/HDL Ratio 2.87 Ratio; Globulin 2.5 d/dL; Glucose 116 mg/dL; LDL Cholesterol,Calculated 133.3 mg/dL; Potassium 4.7 mmol/L; Sodium 142 mmol/L; Total Bilirubin 0.4 mg/dL; Total Protein 6.9 d/dL
[2023-02-25 10:42] LABS: T4, Free (Free Thyroxine) 1.04 ng/dL
[2023-02-26 10:17] LABS: African American GFR (CKD) 79.1; Non-African American GFR(CKD) 68.6
== END | disposition home or self-care (01) ==
LOC: LABWHC1 09:32
PROVIDERS: ATTEND Physician Assistant Medical
DX: E03.9 Hypothyroidism, unspecified (principal); J45.909 Unspecified asthma, uncomplicated; R73.01 Impaired fasting glucose
CPT/HCPCS: 36415; 80053; 80061; 83036; 84439; 84443; 84481; 85027

== ENCOUNTER 2023-04-28 10:41 | Emergency (ER) | payer MEDICAID ==
[2023-04-28 10:51] VITALS: TEMP 98.1
[2023-04-28] MEDS ORDERED: ACET/COD 300 MG/30 MG STARTER PACK 6 TAB BTL PO STA (12:08)
--- NOTE | 2023-04-28 12:08 | ED ---
General Adult HPI - General Chief complaint: Dental/Oral Stated complaint: Dental issues Time Seen by Provider: 04/28/23 11:10 Source: patient Mode of arrival: ambulatory Limitations: no limitations - History of Present Illness Initial comments: Dictation was produced using [facility] dictation software. please excuse any grammatical, word or spelling errors. Chief Complaint: 63-year-old female with left maxillary dental pain History of Present Illness: Is a 63-year-old female presents emergency department 1-2 days of left maxillary dental pain. She is ALLERGIES to penicillin. States that she gets a rash. She has not had penicillin since young adulthood. Patient denies any fever. She has extensive history of dental work and dental caries. She does have a dentist. The ROS documented in this emergency department record has been reviewed and confirmed by me. Those systems with pertinent positive or negative responses marie ve been documented in the HPI. All other systems are other negative and/or noncontributory. - Related Data Home Medications Medication Instructions Recorded Confirmed Albuterol Inhaler [Ventolin Hfa 1 - 2 puff INHALATION Q6HR PRN 06/05/17 06/05/17 Inhaler] Previous Rx's Medication Instructions Recorded Cephalexin [Keflex] 500 mg PO Q6HR #56 cap 06/07/17 Omeprazole [PriLOSEC] 20 mg PO AC-BID #28 cap 06/07/17 Clindamycin [Cleocin] 450 mg PO Q8H 7 Days #63 cap 04/28/23 Allergies Allergy/AdvReac Type Severity Reaction Status Date / Time Penicillins Allergy Unknown Verified 04/28/23 10:51 Review of Systems ROS Statement: Those systems with pertinent positive or pertinent negative responses have been documented in the HPI. ROS Other: All systems not noted in ROS Statement are negative. Past Medical History Past Medical History: Asthma, Thyroid Disorder History of Any Multi-Drug Resistant Organisms: None Reported Past Surgical History: Section Additional Past Surgical History / Comment(s): csection x3 Past Anesthesia/Blood Transfusion Reactions: No Reported Reaction Past Psychological History: No Psychological Hx Reported Smoking Status: Never smoker Past Alcohol Use History: None Reported Past Drug Use History: None Reported - Past Family History Mother Family Medical History: Cancer Additional Family Medical History / Comment(s): intestinal cancer Father Family Medical History: No Reported History General Exam - General Exam Comments Initial Comments: PHYSICAL EXAM: General Impression: Alert and oriented x3, not in acute distress HEENT: Normocephalic atraumatic, extra-ocular movements intact, pupils equal and reactive to light bilaterally, mucous membranes moist. Oral exam: Poor dentition, multiple dental caries, no gingival abscess Cardiovascular: Heart regular rate and rhythm Chest: Able to complete full sentences, no retractions, no tachypnea Musculoskeletal: Pulses present and equal in all extremities, no peripheral edema Motor: no focal deficits noted Neurological: CN II-XII grossly intact, no focal motor or sensory deficits noted Skin: Intact with no visualized rashes Psych: Normal affect and mood Limitations: no limitations Course Vital Signs 04/28/23 10:49 Temperature 98.1 F Pulse Rate 90 Respiratory 20 Rate Blood Pressure 141/83 O2 Sat by Pulse 98 Oximetry Medical Decision Making - Medical Decision Making Was pt. sent in by a medical professional or institution (, PA, CODE NUMBER STAMPER, urgent care, hospital, or penitentiary...) When possible be specific @ -No Did you speak to anyone other than the patient for history (EMS, parent, family, police, friend...)? What history was obtained from this source @ -No Did you review nursing and triage notes (agree or disagree)? Why? @ -I reviewed and agree with nursing and triage notes Were old charts reviewed (outside hosp., previous admission, EMS record, old EKG, old radiological studies, urgent care reports/EKG's, penitentiary records)? Report findings @ -No old charts were reviewed Differential Diagnosis (chest pain, altered mental status, abdominal pain women, abdominal pain men, vaginal bleeding, musculoskeletal, weakness, fever, dyspnea, syncope, headache, dizziness, GI bleed, back pain, seizure, CVA, palpatations, mental health)? @ -not applicable EKG interpreted by me (3pts min.). @ -None done X-rays interpreted by me (1pt min.). @ -None done CT interpreted by me (1pt min.). @ -None done U/S interpreted by me (1pt. min.). @ -None done What testing was considered but not performed or refused? (CT, X-rays, U/S, labs)? Why? @ -None What meds were considered but not given or refused? Why? @ -None Did you discuss the management of the patient with other professionals (professionals i.e. , PA, CODE NUMBER STAMPER, lab, RT, psych nurse, long term care social worker, spooling operator, teacher, code enforcement officer, family service caseworker)? Give summary @ -No Was smoking cessation discussed for >3mins.? @ -No Was critical care preformed (if so, how long)? @ -No Were there social determinants of health that impacted care today? How? (Homelessness, low income, unemployed, alcoholism, drug addiction, transportation, low edu. Level, literacy, decrease access to med. care, shelter, rehab)? @ -No Was there de-escalation of care discussed even if they declined (Discuss DNR or withdrawal of care, Hospice)? DNR status @ -No What co-morbidities impacted this encounter? (DM, HTN, Smoking, COPD, CAD, Cancer, CVA, ARF, Chemo, Hep., AIDS, mental health diagnosis, sleep apnea, morbid obesity)? @ -None Was patient admitted / discharged? Hospital course, mention meds given and route, prescriptions, significant lab abnormalities, going to OR and other pertinent info. @ -63-year-old female with dental pain. No gingival abscess. Vital signs stable. Patient well-appearing. Patient has poor dentition. Patient prescribed antibiotics and discharged told to follow up with dentist. Undiagnosed new problem with uncertain prognosis? @ -[No] Drug Therapy requiring intensive monitoring for toxicity (Heparin, Nitro, Insulin, Cardizem)? @ -[No] Were any procedures done? @ -[No] Diagnosis/symptom? Acute, or Chronic, or Acute on Chronic? Uncomplicated (without systemic symptoms) or Complicated (systemic symptoms)? @ -Dental pain Side effects of treatment? @ -[No] Exacerbation, Progression, or Severe Exacerbation? @ -[No] Poses a threat to life or bodily function? How? (Chest pain, [place], [place], pneumonia, PE, COPD, DKA, ARF, appy, cholecystitis, CVA, Diverticulitis, Homicidal, Suicidal, threat to staff... and all critical care pts) @ -[No] Disposition Clinical Impression: Pain, dental Disposition: HOME SELF-CARE Condition: Good Instructions (If sedation given, give patient instructions): Toothache (ED) Additional Instructions: folllow up with Dentist Prescriptions: Clindamycin [Cleocin] 450 mg PO Q8H 7 Days #63 cap Is patient prescribed a controlled substance at d/c from ED?: No Referrals: Valentina Valenzuela DO [Primary Care Provider] - 1-2 days Time of Disposition: 12:07
[2023-04-28 12:21] VITALS: BP 164/84; PULSE 77; RESP 18
== END 2023-04-28 12:20 | disposition home or self-care (01) ==
LOC: EC 10:41
DX: K08.89 Other specified disorders of teeth and supporting structures (principal); J45.909 Unspecified asthma, uncomplicated; Z88.0 Allergy status to penicillin; Z79.899 Other long term (current) drug therapy
CPT/HCPCS: 99282

== ENCOUNTER 2023-11-25 11:47 | Emergency (ER) | payer MEDICAID ==
--- NOTE | 2023-11-25 12:00 | ED ---
Upper Extremity HPI - General Source: patient, RN notes reviewed Mode of arrival: ambulatory Limitations: no limitations <Angela Babin - Last Filed: 11/25/23 11:58> - General Source: patient, RN notes reviewed Mode of arrival: ambulatory Limitations: no limitations <Benito Hoskins - Last Filed: 11/25/23 13:17> - General Stated Complaint: Fall, Pain in L shoulder Time Seen by Provider: 11/25/23 11:58 - History of Present Illness Initial Comments: Patient is a 63-year-old female presented to ER with chief complaint of left shoulder injury. Patient states she tripped and fell last night landing on her left shoulder. Denies any head injury, loss of consciousness, blood thinner use. Denies dizziness, lightheadedness, chest pain, shortness of breath prior to event. (Angela Babin) 63-year-old female presents emergency department chief complaint of fall, left arm injury. Patient states she tripped and fell last night landing on her left shoulder she states she has no lower extremity injury no head injury no neck pain. Denies any blood thinners. Patient states that she has had no pain relief at home. (Benito Hoskins) - Related Data Home Medications Medication Instructions Recorded Confirmed Albuterol Inhaler [Ventolin Hfa 1 - 2 puff INHALATION Q6HR PRN 06/05/17 06/05/17 Inhaler] Previous Rx's Medication Instructions Recorded Cephalexin [Keflex] 500 mg PO Q6HR #56 cap 06/07/17 Omeprazole [PriLOSEC] 20 mg PO AC-BID #28 cap 06/07/17 Clindamycin [Cleocin] 450 mg PO Q8H 7 Days #63 cap 04/28/23 Allergies Allergy/AdvReac Type Severity Reaction Status Date / Time Penicillins Allergy Unknown Verified 11/25/23 12:35 Review of Systems ROS Other: All systems not noted in ROS Statement are negative. <Angela Babin - Last Filed: 11/25/23 11:58> ROS Other: All systems not noted in ROS Statement are negative. <Benito Hoskins - Last Filed: 11/25/23 13:17> ROS Statement: Those systems with pertinent positive or pertinent negative responses have been documented in the HPI. Past Medical History Past Medical History: Asthma, Thyroid Disorder History of Any Multi-Drug Resistant Organisms: None Reported Past Surgical History: Section Additional Past Surgical History / Comment(s): csection x3 Past Anesthesia/Blood Transfusion Reactions: No Reported Reaction Past Psychological History: No Psychological Hx Reported Smoking Status: Never smoker Past Alcohol Use History: None Reported Past Drug Use History: None Reported - Past Family History Mother Family Medical History: Cancer Additional Family Medical History / Comment(s): intestinal cancer Father Family Medical History: No Reported History <Angela Babin - Last Filed: 11/25/23 11:58> General Exam <Angela Babin - Last Filed: 11/25/23 11:58> General appearance: alert, in no apparent distress Head exam: Present: atraumatic, normocephalic, normal inspection Neck exam: Present: normal inspection, full ROM. Absent: tenderness, meningismus, lymphadenopathy Respiratory exam: Present: normal lung sounds bilaterally. Absent: respiratory distress, wheezes, rales, rhonchi, stridor Cardiovascular Exam: Present: regular rate, normal rhythm, normal heart sounds. Absent: systolic murmur, diastolic murmur, rubs, gallop, clicks Extremities exam: Present: other (Tenderness to left shoulder region, limited range of motion neurovascular intact) <Benito Hoskins - Last Filed: 11/25/23 13:17> - General Exam Comments Initial Comments: Visual Physical Exam Vital signs reviewed General: Well-appearing, nontoxic, no acute distress. Head: Normocephalic, atraumatic Eyes: PERRLA, EOMI ENT: Airway patent Chest: Nonlabored breathing Skin: No visual rash, normal skin tone Neuro: Alert and oriented 3 Musculoskeletal: Left shoulder appears swollen (Angela Babin) Course Vital Signs 11/25/23 12:31 Temperature 99.9 F H Pulse Rate 88 Respiratory 18 Rate Blood Pressure 160/90 O2 Sat by Pulse 98 Oximetry Medical Decision Making <Angela Babin - Last Filed: 11/25/23 11:58> <Benito Hoskins - Last Filed: 11/25/23 13:17> - Medical Decision Making I performed the quick note portion of this chart. Electronically signed by Angela Babin PA-C (Angela Babin) Was pt. sent in by a medical professional or institution (JESSE Briones, JOINER HELPER, urgent care, hospital, or intermediate...) When possible be specific @ -No Did you speak to anyone other than the patient for history (EMS, parent, family, police, friend...)? What history was obtained from this source @ -No Did you review nursing and triage notes (agree or disagree)? Why? @ -I reviewed and agree with nursing and triage notes Were old charts reviewed (outside hosp., previous admission, EMS record, old EKG, old radiological studies, urgent care reports/EKG's, intermediate records)? Report findings @ -No old charts were reviewed Differential Diagnosis (chest pain, altered mental status, abdominal pain women, abdominal pain men, vaginal bleeding, weakness, fever, dyspnea, syncope, headache, dizziness, GI bleed, back pain, seizure, CVA, palpatations, mental health, musculoskeletal)? @ -Fall, shoulder dislocation, humerus fracture, clavicular fracture EKG interpreted by me (3pts min.). @ -None X-rays interpreted by me (1pt min.). @ -[X-ray left shoulder showing left proximal humerus fracture CT interpreted by me (1pt min.). @ -None done U/S interpreted by me (1pt. min.). @ -None done What testing was considered but not performed or refused? (CT, X-rays, U/S, labs)? Why? @ -None What meds were considered but not given or refused? Why? @ -None Did you discuss the management of the patient with other professionals (professionals i.e. JESSE Briones, JOINER HELPER, lab, RT, psych nurse, social worker assistant, circulation tender, teacher, security flex officer, watch case polisher)? Give summary @ -No Was smoking cessation discussed for >3mins.? @ -No Was critical care preformed (if so, how long)? @ -No Were there social determinants of health that impacted care today? How? (Homelessness, low income, unemployed, alcoholism, drug addiction, transp ortation, low edu. Level, literacy, decrease access to med. care, retirement, rehab)? @ -No Was there de-escalation of care discussed even if they declined (Discuss DNR or withdrawal of care, Hospice)? DNR status @ -No What co-morbidities impacted this encounter? (DM, HTN, Smoking, COPD, CAD, Cancer, CVA, ARF, Chemo, Hep., AIDS, mental health diagnosis, sleep apnea, morbid obesity)? @ -None Was patient admitted / discharged? Hospital course, mention meds given and route, prescriptions, significant lab abnormalities, going to OR and other pertinent info. @ -Discharge patient was placed in a sling will follow-up with orthopedics. Patient has a proximal humerus fracture she is neurovascular intact provided analgesics Undiagnosed new problem with uncertain prognosis? @ -No Drug Therapy requiring intensive monitoring for toxicity (Heparin, Nitro, Insulin, Cardizem)? @ -No Were any procedures done? @ -No Diagnosis/symptom? @ -[Left proximal humerus fracture Acute, or Chronic, or Acute on Chronic? @ -Acute Uncomplicated (without systemic symptoms) or Complicated (systemic symptoms)? @ -uncomplicated Side effects of treatment? @ -No Exacerbation, Progression, or Severe Exacerbation? @ -No Poses a threat to life or bodily function? How? (Chest pain, [place], [place], pneumonia, PE, COPD, DKA, ARF, appy, cholecystitis, CVA, Diverticulitis, Homicidal, Suicidal, threat to staff... and all critical care pts) @ -No (Benito Hoskins) Disposition <Angela Babin - Last Filed: 11/25/23 11:58> Is patient prescribed a controlled substance at d/c from ED?: No Time of Disposition: 13:03 <Benito Hoskins - Last Filed: 11/25/23 13:17> Clinical Impression: Fall, Closed fracture of left proximal humerus Disposition: HOME SELF-CARE Condition: Stable Instructions (If sedation given, give patient instructions): Proximal Humerus Fracture (ED) Additional Instructions: Please return to the Emergency Department if symptoms worsen or any other concerns. Referrals: Valentina Valenzuela DO [Primary Care Provider] - 1-2 days Kendall Irizarry MD [STAFF PHYSICIAN] - 1-2 days
[2023-11-25 12:39] VITALS: BP 160/90; RESP 18
--- NOTE | 2023-11-25 12:52 | XR ---
EXAMINATION TYPE: XR shoulder complete LT DATE OF EXAM: 11/25/2023 12:46 PM CLINICAL INDICATION:Female, 63 years old with history of fall; [facility] COMPARISON: None TECHNIQUE: XR shoulder complete LT; examined in AP, internally rotated and scapular Y projections. FINDINGS: Cortical step-off of the inferior glenoid seen on a couple views suspicious for intra-articular fract ure. IMPRESSION: There is a step-off of the inferior glenoid suspicious for fracture. Further evaluation with CT recom mended.
[2023-11-25] MEDS: ACET/COD 300 MG/30 MG STARTER PACK 6 TAB BTL PO STA (13:35)
[2023-11-25 14:15] VITALS: PULSE 89; TEMP 99
== END 2023-11-25 13:38 | disposition home or self-care (01) ==
LOC: EC 11:47
DX: S42.202A Unspecified fracture of upper end of left humerus, initial encounter for closed fracture (principal); J45.909 Unspecified asthma, uncomplicated; Z79.899 Other long term (current) drug therapy; Z88.0 Allergy status to penicillin; W01.0XXA Fall on same level from slipping, tripping and stumbling without subsequent striking against object, initial encounter
CPT/HCPCS: 99284

== ENCOUNTER → 2023-12-18 | Outpatient (CLI) | payer MEDICAID ==
[2023-12-18 18:15] LABS: HCT 37.5 % (37.2-46.3); HGB 11.8 g/dL (12.0-15.0); MCH 29.8 pg (27.0-32.0); MCHC 31.5 g/dL (32.0-37.0); MCV 94.7 FL (80.0-97.0); Mean Platelet Volume 11.2 FL (9.5-12.2); NRBC Per 100 WBC 0 X 10*3/uL (0.00-0.01); Platelet Count 312 X 10*3/uL (140-440); RBC 3.96 X 10*6/uL (4.10-5.20); RDW 13.5 % (11.5-14.5); WBC 5.78 X 10*3/uL (4.50-10.00)
[2023-12-18 18:45] LABS: ALT 13 U/L (8-44); AST 12 U/L (13-35); Albumin 4.3 g/dL (3.8-4.9); Albumin/Globulin Ratio 1.72 Ratio (1.60-3.17); Alkaline Phosphatase 99 U/L (41-126); BUN/Creat Ratio 18.12 Ratio (12.00-20.00); Blood Urea Nitrogen 14.5 mg/dL (9.0-27.0); Calcium 9.4 mg/dL (8.7-10.3); Carbon Dioxide 26.1 mmol/L (21.6-31.8); Chloride 104 mmol/L (96-109); Chol/HDL Ratio 3.13 Ratio; Globulin 2.5 g/dL (1.6-3.3); Glucose 102 mg/dL (70-110); Sodium 141 mmol/L (135-145); Total Bilirubin 0.7 mg/dL (0.3-1.2); Total Protein 6.8 g/dL (6.2-8.2); VLDL Calculation 18.52 mg/dL (5.00-40.00)
== END | disposition home or self-care (01) ==
LOC: LABWHC1 12:32
PROVIDERS: ATTEND Family Medicine
DX: Z00.00 Encounter for general adult medical examination without abnormal findings (principal); D72.819 Decreased white blood cell count, unspecified; J45.909 Unspecified asthma, uncomplicated; R73.01 Impaired fasting glucose
CPT/HCPCS: 36415; 80053; 80061; 83036; 84443; 85027

== ENCOUNTER → 2023-12-18 | Outpatient (CLI) | payer MEDICAID ==
--- NOTE | 2023-12-18 13:10 | CT ---
EXAMINATION TYPE: CT shoulder LT wo con CT DLP: 421 mGycm, Automated exposure control for dose reduction was used. DATE OF EXAM: 12/18/2023 1:01 PM COMPARISON: Shoulder radiograph 11/25/2023. CLINICAL INDICATION:Female, 63 years old with history of S42.142A DISP FX OF GLENOID CAVITY OF SCAPUL A, LEF; PH[facility], pain in lt shoulder, displaced fx of glenoid cavity of scapula TECHNIQUE: Axial images were obtained of the CT shoulder LT wo con, Additional coronal and sagittal r eformatted images and soft tissue and bone window were obtained for review. 3-D reconstruction was cr eated on a separate workstation. Contrast used: mL of , (None if empty) Oral contrast used: (None if empty) FINDINGS: Cortical step-off of the inferior glenoid compatible with fracture with 3 mm displacement. There is joint space narrowing of the glenohumeral joint. Os acromiale he is present. There is degene ration of the acromioclavicular joint. Mild atrophy changes of the supraspinatus with narrowing of th e acromiohumeral interval measuring 4 mm suggesting rotator cuff pathology. Nodular like areas in the left breast partially visualized measuring up to 9 mm. IMPRESSION: 1. Fracture of the inferior glenoid with 3 mm displacement. 2. Moderate left shoulder osteoarthrosis with joint space narrowing and osteophyte formation. 3. Mild atrophy changes of the supraspinatus with narrowing of the acromiohumeral interval suggestin g rotator cuff tear. 4. Nodular like areas in the left breast partially visualized measuring up to 9 mm. Correlation with mammography if not recently performed is recommended. 5. Os acromiale.
== END | disposition home or self-care (01) ==
LOC: RADCTMAIN 11:48
PROVIDERS: ATTEND Orthopaedic Surgery
DX: S42.142A Displaced fracture of glenoid cavity of scapula, left shoulder, initial encounter for closed fracture (principal); M19.012 Primary osteoarthritis, left shoulder; M25.712 Osteophyte, left shoulder

== ENCOUNTER → 2024-01-18 | Outpatient (CLI) | payer MEDICAID ==
--- NOTE | 2024-01-21 11:45 | MM ---
Reason for Exam: Screening (asymptomatic). Last mammogram was performed 8 year(s) and 8 month(s) ago. Patient History: Menarche at age 11. First Full-Term at age 15. Postmenopausal. 06/16/2015, Benign Core Biopsy on the left side. Risk Values: Ysabel 5 year model risk: 1.4%. NCI Lifetime model risk: 5.6%. Prior Study Comparison: 05/20/2015 Bilateral Screening Mammogram, [facility]. 06/16/2015 Left Diagnostic Mammogram, [facility]. Tissue Density: There are scattered areas of fibroglandular density. Findings: Analyzed By CAD. Left breast biopsy clip. Right breast: There is no suspicious group of microcalcifications or new suspicious mass. Left breast: There is no suspicious group of microcalcifications or new suspicious mass. Overall Assessment: Benign, BI-RAD 2 Management: Screening Mammogram of both breasts in [address] [facility] will attempt to contact patient to return for supplemental views and ultrasound if indicated. Patient should continue monthly self-breast exams. A clinical breast exam by your physician is recommended on an annual basis. This exam should not preclude additional follow-up of suspicious palpable abnormalities. Note on Ysabel scores and lifetime risk: 1. A Ysabel score greater than 3% is considered moderate risk. If this is the case, consider specialist referral to assess eligibility for a risk reducing agent. 2. If overall lifetime risk for the development of breast cancer is 20% or higher, the patient may qualify for future screening with alternating mammogram and breast MRI. Electronically signed and approved by: Arthur Casey DO
== END | disposition home or self-care (01) ==
LOC: RADMAMWWP 13:59
PROVIDERS: ATTEND Family Medicine
DX: Z12.31 Encounter for screening mammogram for malignant neoplasm of breast (principal); Z78.0 Asymptomatic menopausal state
CPT/HCPCS: 77063; 77067